=== PATIENT | male | born 1990 | race Caucasian/White ===

== ENCOUNTER 2017-12-11 17:33 | Emergency (ER) | payer OTHER ==
[~2017-12-11] VITALS: Ht 180.3 cm; Wt 161.0 kg
[2017-12-11 17:54] VITALS: Ht 180.3 cm; Wt 161.0 kg
[2017-12-11] MEDS ORDERED: IBUPROFEN 600 MG TAB PO STA (18:35)
[2017-12-11] MEDS ORDERED: ALBUT/IPRATROP 3MG/0.5MG NEB 3 ML VIAL INH STA (18:35)
[2017-12-11] MEDS ORDERED: ACET-1256 PO (18:40)
[2017-12-11] MEDS ORDERED: [UNRECOGNIZED DRUG - CODE] PO (18:40)
[2017-12-11 19:03] VITALS: BP 133/91; PULSE 112; TEMP 36.8; O2SAT 93
--- NOTE | 2017-12-11 19:14 | DIAGNOSTIC IMAGING REPORT ---
CHEST ONE VIEW PORTABLE HISTORY: Flu symptoms. Short of breath. COMPARISON: None. FINDINGS: The lungs are clear. Cardiac silhouette is normal in size. No pleural effusions. No pneumothorax. IMPRESSION: No acute process. Electronically signed by: Tyree Khalil M.D. 12/11/2017 7:13 PM Dictated Date/Time: 12/11/2017 7:12 PM
[2017-12-11 19:16] LABS: INFLUENZA B ANTIGEN Neg for Influ B (NEG)
[2017-12-11] MEDS ORDERED: OSEL75CA12 PO (19:20)
[2017-12-11] MEDS ORDERED: OSELTAMIVIR PHOSPHATE 75 MG CAP PO STA (19:20)
--- NOTE | 2017-12-11 19:27 | EMERGENCY ROOM VISIT NOTE ---
History Report prepared by Rom: Angela Marinelli Under the Supervision of: Dr. Marissa Adams M.D. First contact with patient: 18:24 Chief Complaint: COUGH Stated Complaint: HOT AND COLD, BODY ACHE, COUGHING Nursing Triage Summary: patient c/o chills feverish, bodyache and cough since yesterday. History of Present Illness The patient is a 27 year old male who presents to the Emergency Room with complaints of worsening cough starting yesterday. The patient complains of body aches, chills, shortness of breath, loss of appetite, and diaphoresis. He states that has been taking Tylenol with little relief with the last dose being 2.5 hours ago. He notes he has also been taking Theraflu and his Albuterol inhaler with little relief. The patient denies vomiting and diarrhea. He denies a history of asthma. The patient notes that he has been drinking a lot of water today. He states that he did not get the flu shot this year. The patient states that he quit smoking 11 days ago. Source of History: patient Onset: yesterday Position: other (global) Quality: ache, other (flu-like) Timing: worsening Associated Symptoms: + chills, + diaphoresis, + SOB, No vomiting, No diarrhea Note: The patient complains of loss of appetite. Review of Systems See HPI for pertinent positives & negatives. A total of 10 systems reviewed and were otherwise negative. Past Medical & Surgical Medical Problems: (1) No Known Active Medical Problems Family History No pertinent family history Social History Smoking Status: Former Smoker Drug Use: none Marital Status: single Housing Status: lives with roommate Current/Historical Medications Scheduled Oseltamivir (Tamiflu), 75 MG PO BID Scheduled PRN Acetaminophen (Tylenol), 1,000 MG PO Q8 PRN for Fever Rfdkwgpwbub-Vbseextpxdgso-Uuor (Theraflu Flu & Sore Throa), 1 PKT PO UD PRN for ILLNESS Allergies Coded Allergies: No Known Allergies (Unverified , 10/11/16) Physical Exam Vital Signs Date Time Temp Pulse Resp B/P (MAP) Pulse Ox O2 Delivery O2 Flow Rate FiO2 12/11/17 19:03 36.8 112 20 133/91 93 12/11/17 17:54 37.3 142 24 138/84 94 Room Air Physical Exam Vital signs reviewed. General: Well-appearing, obese, febrile, in no significant distress. HEENT: No scleral icterus, PERRLA, neck supple. Atraumatic. Cardiovascular: Regular rate and rhythm, no extra sounds. Pulmonary: Clear to auscultation bilaterally, increased work of breathing. Moist cough. Abdomen: Soft, nontender, nondistended, positive bowel sounds. Musculoskeletal: Atraumatic, no peripheral edema. Neurologic: Patient awake alert and oriented x 3, full strength in all 4 extremities. Cranial nerves 2 through 12 grossly intact. No meningeal signs. Skin: Warm, dry, no rash Medical Decision & Procedures ER Provider Diagnostic Interpretation: Radiology results as stated below per my review and radiologist interpretation: CHEST ONE VIEW PORTABLE HISTORY: Flu symptoms. Short of breath. COMPARISON: None. FINDINGS: The lungs are clear. Cardiac silhouette is normal in size. No pleural effusions. No pneumothorax. IMPRESSION: No acute process. Electronically signed by: Tyree Khalil M.D. 12/11/2017 7:13 PM Dictated Date/Time: 12/11/2017 7:12 PM Laboratory Results Test 12/11/17 18:45 Influenza Type A Antigen POS for Influ A (NEG) Influenza Type B Antigen Neg for Influ B (NEG) Laboratory results per my review. Medications Administered Medications (Trade) Dose Ordered Sig/Bina Route Start Time Stop Time Status Last Admin Dose Admin Ibuprofen (Motrin Tab) 600 mg NOW STAT PO 12/11/17 18:35 12/11/17 18:37 DC 12/11/17 18:45 600 MG Albuterol/ Ipratropium (Duoneb) 3 ml NOW STAT INH 12/11/17 18:35 12/11/17 18:37 DC 12/11/17 18:45 3 ML Oseltamivir Phosphate (Tamiflu Cap) 75 mg NOW STAT PO 12/11/17 19:20 12/11/17 19:21 DC 12/11/17 19:33 75 MG Albuterol (Ventolin Hfa Inhaler) 2 puffs NOW ONCE INH 12/11/17 19:30 12/11/17 19:31 DC 12/11/17 19:33 2 PUFFS ED Course 1832: Past medical records reviewed. The patient was evaluated in room B2. A complete history and physical examination was performed. 1834: Ordered Duoneb 3 ml INH, Motrin Tab 600 mg PO. 1919: Ordered Tamiflu Cap 75 mg PO. 1927: Upon reevaluation, the patient appeared to have improvement of his symptoms. I discussed findings with him. He verbalized agreement of the treatment plan. The patient was discharged home. 1929: Ordered Albuterol 2 puffs INH. Medical Decision DDx: influenza, other viral illness, pneumonia, urinary tract infection, metabolic abnormality, medication effect, cellulitis, meningitis, intra-abdominal source. This patient was evaluated and appeared to be in no significant distress. IV access was obtained and laboratory work was drawn. The patient was placed on the lunchroom monitor. He is found to be febrile and given 600 mg of ibuprofen orally. Influenza swab was obtained and is positive for influenza A. Chest x- ray is clear. The patient was informed of the findings. He was started on Tamiflu 75 mg twice a day for 5 days. The patient was discharged to care of family. He was advised to use Tylenol and ibuprofen as needed for pain or fever. She will drink plenty of clear fluids and use an albuterol inhaler as needed for cough or wheezing. He will follow-up with his PCP this week for reevaluation and return to the ER for worsening of symptoms or any medical concerns. Medication Reconcilliation Current Medication List: was personally reviewed by me Blood Pressure Screening Patient's blood pressure: Normal blood pressure Blood pressure disposition: Did not require urgent referral Impression Primary Impression: Influenza A Scribe Attestation The scribe's documentation has been prepared under my direction and personally reviewed by me in its entirety. I confirm that the note above accurately reflects all work, treatment, procedures, and medical decision making performed by me. Departure Information Dispostion Home / Self-Care Prescriptions Oseltamivir (Tamiflu) 75 Mg Cap 75 MG PO BID, #10 CAP Prov: Marissa Adams M.D. 12/11/17 Referrals No Doctor, Assigned (PCP) Forms HOME CARE DOCUMENTATION FORM, IMPORTANT VISIT INFORMATION Patient Instructions [facility] Additional Instructions Diagnosis: Influenza A Tamiflu 75 mg twice daily for 5 days. Albuterol 2 puffs every 4 hours as needed for wheezing or cough. Tylenol 650 mg every 6 hours as needed for pain or fever. Ibuprofen 600 mg every 6 hours as needed for pain or fever with food. Please drink plenty of clear fluids. Follow-up with your physician this week for reevaluation. Return to the ER for worsening of symptoms or any medical concerns.
[2017-12-11] MEDS ORDERED: ALBUTEROL HFA 8 GM INHALER INH ONE (19:30)
== END 2017-12-11 19:46 | disposition home or self-care (01) ==
LOC: C.EDB 17:34
DX: J11.1 Influenza due to unidentified influenza virus with other respiratory manifestations (principal); Z87.891 Personal history of nicotine dependence

== ENCOUNTER 2018-02-08 07:27 | Emergency (ER) | payer OTHER ==
[~2018-02-08] VITALS: Ht 180.3 cm; Wt 162.7 kg
[~2018-02-08 07:27] MED LIST: ACET-1256 PO; OSEL75CA12 PO; [UNRECOGNIZED DRUG - CODE] PO
[2018-02-08 07:31] VITALS: BP 163/101; TEMP 36.8; Ht 180.3 cm; Wt 162.7 kg
[2018-02-08] MEDS ORDERED: XYLOCAINE 1%/SOD BICARB 20 ML VIAL INFIL ONE (07:45)
[2018-02-08] MEDS ORDERED: DIPHTHERIA/TETANUS/PERTUSSIS 0.5 ML SYR/VIAL IM. ONE (07:45)
--- NOTE | 2018-02-08 08:32 | EMERGENCY ROOM VISIT NOTE ---
History First contact with patient: 07:35 Chief Complaint: LACERATION/CUT (SUT/DERMABOND) Stated Complaint: SLICED INDEX FINGER AT WORK Nursing Triage Summary: cut on left 2nd digit knuckle History of Present Illness The patient is a 27 year old male who presents to the Emergency Room with complaints of a laceration to his left index finger last night around 10:40 PM. This injury happened at work. The patient is employed at [employer]. He cut his finger on the edge of a metal surround on a [employer] machine. The patient denies any significant bleeding. He has had the wound bandaged all night, and now reports stiffness. He denies any paresthesias or numbness of the left index fingertip. The patient is ambidextrous. The patient is uncertain of his last tetanus immunization, and rates his discomfort a 2 out of 10. Review of Systems 6 system review was performed and was negative except for pertinent positives and negatives as indicated in history of present illness Past Medical/Surgical History Medical Problems: (1) No Known Active Medical Problems Medical Problems: (1) Morbid obesity with BMI of 50.0-59.9, adult (2) Nicotine Dependence, Cigarettes, Uncomplicated Family History No pertinent family history Social History Smoking Status: Current Every Day Smoker Alcohol Use: occasionally Drug Use: none Marital Status: single Housing Status: lives with roommate Occupation Status: employed Current/Historical Medications No Active Prescriptions or Reported Meds Physical Exam Vital Signs Date Time Temp Pulse Resp B/P (MAP) Pulse Ox O2 Delivery O2 Flow Rate FiO2 02/08/18 07:31 36.8 97 98 163/101 Room Air Physical Exam CONSTITUTIONAL: Morbidly obese male in no acute distress. HEENT: Normocephalic, atraumatic. Pupils equal, round and reactive. NECK: Full active range of motion without discomfort. MUSCULOSKELETAL: Examination of the left index finger shows a 7 mm V-shaped laceration over the dorsal PIP joint. No active bleeding is noted. Capillary refill is less than 2 seconds. INTEGUMENTARY: No rash or other significant dermatologic conditions noted. NEUROLOGIC: Left index fingertip is sensory intact. Medical Decision & Procedures Medications Administered Medications (Trade) Dose Ordered Sig/Bina Route Start Time Stop Time Status Last Admin Dose Admin Diphtheria/ Pertussis/Tetanus Vacc (Adacel Inj) 0.5 ml ONCE ONCE IM. 02/08/18 07:45 02/08/18 07:46 DC 02/08/18 07:46 0.5 ML Procedure Laceration evaluation and repair was performed under local anesthesia after receiving verbal consent from the patient. Using buffered 1% lidocaine without epinephrine, good local anesthesia was administered. The peripheral tissue was then cleansed with iodine, then the wound was irrigated with normal saline. Exploration of the wound does not show any involvement of the underlying tendon. The patient has full extensor effort with resisted movement. The wound was then approximated using 5-0 nylon simple interrupted sutures 3. A bacitracin dressing was applied. ED Course Patient history and physical exam were performed. Nurse's notes were reviewed. Vital signs were reviewed, showing a blood pressure of 163/101. Laceration repair was performed under local anesthesia. The patient was also administered Adacel IM. The patient was provided additional verbal and written wound care instructions. Ice and elevation for swelling. Ibuprofen or Tylenol as needed for pain. Return for suture removal in 12-14 days, sooner with any signs of wound infection. The patient was happy with plan of care, voiced understanding of all discharge instructions, and denied any pain at the time of discharge. The patient was also instructed to follow-up with his PCP for blood pressure recheck. Medical Decision Medication Reconcilliation Current Medication List: was personally reviewed by sd Blood Pressure Screening Patient's blood pressure: Elevated blood pressure Blood pressure disposition: Referred to PCP Impression Primary Impression: Laceration of left index finger Additional Impressions: Work related injury Elevated blood pressure reading Departure Information Prescriptions No Active Prescriptions or Reported Meds Referrals No Doctor, Assigned (PCP) Patient Instructions [facility] Problem Qualifiers Primary Impression: Laceration of left index finger Encounter type: initial encounter Damage to nail status: without damage Foreign body presence: without foreign body Qualified Codes: S61.211A - Laceration without foreign body of left index finger without damage to nail, initial encounter
[2018-02-08 08:43] VITALS: PULSE 97; O2SAT 100
== END 2018-02-08 08:43 | disposition home or self-care (01) ==
LOC: C.EDB 07:27
DX: S61.211A Laceration without foreign body of left index finger without damage to nail, initial encounter (principal); W26.8XXA Contact with other sharp object(s), not elsewhere classified, initial encounter; Y92.89 Other specified places as the place of occurrence of the external cause; Y99.0 Civilian activity done for income or pay; R03.0 Elevated blood-pressure reading, without diagnosis of hypertension; E66.01 Morbid (severe) obesity due to excess calories; F17.210 Nicotine dependence, cigarettes, uncomplicated

== ENCOUNTER 2018-02-22 07:39 | Emergency (ER) | payer OTHER ==
[~2018-02-22] VITALS: Ht 180.3 cm; Wt 165.1 kg
[2018-02-22 07:42] VITALS: BP 169/104; PULSE 93; TEMP 36.9; O2SAT 97; Ht 180.3 cm; Wt 165.1 kg
--- NOTE | 2018-02-22 07:51 | EMERGENCY ROOM VISIT NOTE ---
ED Visit Note First contact with patient: 07:46 CHIEF COMPLAINT: Suture removal HPI: This patient returns to the ED today for removal of sutures that were placed 14 days ago. There has been no swelling, redness, or drainage from the wound. The patient feels like the laceration is healing well. REVIEW OF SYSTEMS: A complete 6 point review of systems was reviewed with the patient with pertinent positives and negatives as per history of present illness. All else were negative. PMH: The patient is healthy; there is no significant medical or surgical history. SOCIAL HISTORY: Patient lives locally with family. He is employed by [employer], where the injury occurred. He denies drug, alcohol, tobacco use. PHYSICAL EXAM: Vital Signs: Reviewed Nurse's notes. There is a sutured wound on the left index finger with no signs of infection. [address] There is no erythema, swelling, or tenderness. EMERGENCY DEPARTMENT COURSE: The sutures were removed without any difficulty and there was no separation of the wound edges. The patient did receive an Adacel vaccination at his previous visit. Discharge instructions reviewed, the patient was discharged home in good condition. I attest that I have personally reviewed the patient's current medication list. Blood Pressure Screening: Patient was found to have a slightly elevated blood pressure due to circumstances. I do not believe that the patient requires hypertension monitoring. DIAGNOSIS: Healing laceration and suture removal Current/Historical Medications No Active Prescriptions or Reported Meds Allergies Coded Allergies: No Known Allergies (Unverified , 10/11/16) Vital Signs Date Time Temp Pulse Resp B/P (MAP) Pulse Ox O2 Delivery O2 Flow Rate FiO2 02/22/18 07:42 36.9 93 18 169/104 97 Room Air Departure Information Impression Primary Impression: Encounter for removal of sutures Additional Impression: Laceration of left index finger w/o foreign body w/o damage to nail Dispostion Home / Self-Care Condition GOOD Prescriptions No Active Prescriptions or Reported Meds Referrals Daniel Ceballos D.OCristina (PCP) Patient Instructions ED Wound Check Sutr Remove No Infec, [facility] Additional Instructions Proper wound care is essential for adequate wound healing and infection prevention. You can shower and clean the wound with soap and water. Do not scour over the wound, pat dry with a towel. Do not submerse the wound (i.e. bathe or dish wash) until the wound has fully healed. You can use an antibiotic ointment with a dressing over the wound for the next 3-4 days. After this time you may leave the wound dry and open to the air. Ibuprofen(Motrin, Advil) may be used for fever or pain. Use 400mg every six hours as needed. Take with food. Avoid using more than 2400mg in a 24 hour period. Do not use 2400mg per day for more than three consecutive days without physician direction. Prolonged inappropriate use can lead to stomach upset or ulcers. (AND/OR) Acetaminophen(Tylenol) may be used for fever or pain. Use 500mg every six hours as needed. Avoid using more than 3000mg in a 24 hour period. Problem Qualifiers Additional Impression: Laceration of left index finger w/o foreign body w/o damage to nail Encounter type: subsequent encounter Qualified Codes: S61.211D - Laceration without foreign body of left index finger without damage to nail, subsequent encounter
== END 2018-02-22 08:04 | disposition home or self-care (01) ==
LOC: C.EDB 07:41 → C.EDA 08:04
DX: Z48.02 Encounter for removal of sutures (principal); S61.211D Laceration without foreign body of left index finger without damage to nail, subsequent encounter; W45.8XXD Other foreign body or object entering through skin, subsequent encounter; Y99.0 Civilian activity done for income or pay

== ENCOUNTER → 2018-03-24 | Outpatient (CLI) | payer OTHER | END | disposition home or self-care (01) | LOC: C.LABSPEC 14:54 | PROVIDERS: ATTEND Urology | DX: N47.8 Other disorders of prepuce (principal) ==

== ENCOUNTER → 2018-03-29 | Outpatient (CLI) | payer OTHER ==
[~2018-03-29] MED LIST changes: +IBUP-103 PO; -OSEL75CA12 PO; +SERT50TA PO; -[UNRECOGNIZED DRUG - CODE] PO
--- NOTE | 2018-03-29 15:53 | DIAGNOSTIC IMAGING REPORT ---
CHEST 2 VIEWS ROUTINE CLINICAL HISTORY: PENILE ABNORMALITY, REDUNDANT PREPUCE PREOPERATIVE CHEST COMPARISON STUDY: December 11, 2017 FINDINGS: The cardiac and mediastinal contours are normal. There is no evidence of focal pulmonary consolidation. There is no evidence of failure. No pleural effusions are visualized.[ IMPRESSION: No active disease in the chest. Electronically signed by: Pineda Venegas M.D. 03/29/2018 3:52 PM Dictated Date/Time: 03/29/2018 3:52 PM
== END | disposition home or self-care (01) ==
LOC: C.RAD 15:36
PROVIDERS: ATTEND Urology
DX: N47.8 Other disorders of prepuce (principal)

== ENCOUNTER 2025-07-21 18:16 | Inpatient (IN) ==
--- NOTE | 2025-07-21 18:34 | Emergency Department Note ---
Impression & Plan Suicidal ideations, Depression ED Provider Note NAME: FREDA PERALTA AGE: 34 SEX: M : 1990 ARRIVES VIA: Walk-In INFORMANT: Patient ED PROVIDER(S): Sukhjinder Herman DO CHIEF COMPLAINT: Suicidal ideations HPI: Patient is a 34-year-old male with a past medical history of anxiety, marijuana use, hyperlipidemia and nicotine dependence that presents to the ER for suicidal ideations. Significant other present at bedside provides additional history and notes that depression and anxiety as well as suicidal ideations which have been worse over the past 3 weeks. 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 He denies any headache or change in vision currently but did note some mild blurry vision earlier today. No pain in the eyes. No loss of vision. No belly pain, nausea, vomiting, or diarrhea. No dysuria, urgency or frequency. No auditory or visual hallucinations. ADDITIONAL HISTORY OBTAINED: Per HPI Chronic Medical/Social Conditions Affecting Care: Per HPI PAST MEDICAL HISTORY:See Below PAST SURGICAL HISTORY:See Below FAMILY HISTORY:See Below SOCIAL HISTORY:See Below HOME MEDICATIONS:See Below ALLERGIES:See Below VITALS:See Below PHYSICAL EXAMINATION: GENERAL: Sitting up in bed, alert, well appearing, well nourished, no distress, non-toxic EYE EXAM: normal conjunctiva. PERRL and EOM's intact. OROPHARYNX: no exudate, no erythema, lips, buccal mucosa, and tongue normal and mucous membranes are moist NECK: supple, no nuchal rigidity, no adenopathy, non-tender LUNGS: Clear to auscultation. Normal chest wall mechanics HEART: no murmurs, S1 normal and S2 normal ABDOMEN: abdomen soft, non-tender, normo-active bowel sounds, no masses, no rebound or guarding. BACK: Back is symmetrical on inspection and there is no deformity, no midline tenderness, no CVA tenderness. SKIN: no rashes and no bruising UPPER EXTREMITIES: upper extremities are grossly normal. LOWER EXTREMITIES: No pitting edema. NEURO EXAM: Normal sensorium, cranial nerves II-XII intact, normal speech, no weakness of arms, no weakness of legs. No drift. [id number] intact. MEDICAL DECISION MAKING: Patient is a 34-year-old male who presents ER for the above-stated complaint. IV was established and blood work was obtained. Labs show no significant leukocytosis or anemia. BMP with slightly elevated glucose at 140. LFTs bilirubin and TSH was reassuring. UA was clean. Tox was positive for marijuana. Alcohol negative. COVID-negative. EKG was only performed at the request of psychiatry. CT head was negative. Patient was accepted to [address] 201 for suicidal ideations. Consults/Care Managements Discussions: Per [facility] Triage Nursing notes reviewed. Limited review of prior medical records performed Vital Signs: reviewed and remarkable for HTN Differential diagnosis: Mood disorder, infection, hypoglycemia, electrolyte abnormalities, cardiac sources, intracerebral event, toxicologic, trauma, neurologic, as well as other pathologies. ER treatment provided: See below Diagnostics interpreted by me include EKG and cardiac monitoring as listed below: -Cardiac Monitoring: An order was placed for continuous cardiac monitoring. The monitor shows a rate of 90 with sinus rhythm. -ECG: Sinus rhythm rate of 69 Normal axis No PVCs QTc 432 -Laboratory studies:Interpreted by me as stated above in MDM and shown below. Imaging studies: Xrays: As interpreted by me:none CTs show: CT of the head per my preliminary interpretation showed no obvious large bleed CT of the head per radiology as described above Procedures:none Critical Care: None Past Med/Surg History Problem List (Updated 07/21/25 @ 23:03 by Sukhjinder Herman DO) Depression (Acute) Suicidal ideations (Acute) Back pain (Chronic) Anxiety disorder Medical marijuana use Sacroiliac joint pain Herniation of intervertebral disc between L4 and L5 Back pain Hypercholesterolemia Abnormal ECG Right bundle branch block (RBBB) Family history of ID (myocardial infarction) Elevated liver enzymes Hemoptysis Palpitations Chest pain syndrome Sleep apnea Chest pain on exertion Obesity Essential hypertension Chronic low back pain (Acute) Depression (Acute) Nicotine dependence, cigarettes, uncomplicated (Acute) Morbid obesity with BMI of 50.0-59.9, adult Medical History Alcohol abuse Redundant prepuce and phimosis Penile skin bridge Surgical History History of wisdom tooth extraction Family History Father Diabetes Mother Hypertension Brain stem hemorrhage Sister Heart disease Other Anxiety Depression Gastroesophageal reflux disease Denies family history of Ovarian cancer Prostate cancer Myocardial infarction Breast cancer Colorectal cancer Social History Smoking Status: Current every day smoker Tobacco Type: E-cigarettes / Vaping Age Started Using Tobacco: 17; packs per day: 1; Second Hand Exposure: No; Do You Dip or Chew Tobacco: No; Hx Alcohol Use: No Hx Substance Use: Yes Prescribed Medications: Marijuana Last Used Substance: Days (ago) Last Used Substance Other:: YEST PER PT. Preferred Language: [place]an Communication Ability: Effective Visual Impairment: No Limitations Hearing Ability: Normal Manuscript Reader Required: No marital status: Single Current Living Situation: Significant Other current occupational status: employed current occupation: [employer] Feels Safe at Home: Yes Childhood Exposure to Second-Hand Smoke: Yes Diet: regular caffeine: Yes during the past year weight has: remained stable Dental Care, Regularly: Yes Physical Activity Frequency: Daily Seatbelt Use: always Sunscreen Use: Yes Gender Identity: Male Assistive Devices: Glasses Allergies Allergies Allergy/AdvReac Type Severity Reaction Status Date / Time nickel Allergy Unknown Hives Verified 07/21/25 21:57 No Known Drug Allergies Allergy Unknown Unknown Verified 07/21/25 21:57 Home Meds Home Medications Medication Instructions Recorded Confirmed alprazolam 0.25 mg tablet 0.25 mg PO TID PRN Anxiety 07/21/25 07/21/25 omeprazole 40 mg capsule,delayed 40 mg PO DAILY PRN Acid Reflux 07/21/25 07/21/25 release Previous Rx's Medication Instructions Recorded atorvastatin 20 mg tablet 20 mg PO QPM #30 tabs 01/20/24 loperamide 2 mg capsule 2 mg PO Q6H PRN loose stool #30 11/23/24 caps ondansetron 4 mg disintegrating 4 mg PO Q8H PRN nausea and 11/23/24 tablet vomiting #30 tabs sertraline 100 mg tablet 100 mg PO DAILY #90 tabs 12/11/24 amlodipine 10 mg tablet 10 mg PO QAM #30 tabs 05/06/25 valsartan 80 mg tablet 80 mg PO QAM #30 tabs 05/06/25 meclizine 25 mg tablet 12.5 - 25 mg (0.5 - 1 x 25 mg) PO 05/11/25 QID PRN dizziness #12 tabs sertraline 25 mg tablet (Zoloft) 25 mg PO DAILY #30 tabs 07/17/25 Results & Data (ED) Vital Signs Vital Signs - 24 hr 07/21/25 18:17 07/21/25 21:05 Temperature 36.6 C Temperature Source Temporal Artery Scan Pulse Rate 93 H Pulse Rate [Finger] 70 Pulse Rhythm [Finger] Regular Pulse Strength [Finger] Normal Respiratory Rate 18 17 Respiratory Effort / Characteristics Non-Labored Spontaneous Non-Labored Spontaneous Respiratory Depth Normal Normal Respiratory Pattern Regular Regular Blood Pressure 151/96 H Blood Pressure [Left Arm] 142/85 H Blood Pressure Mean 114 Blood Pressure Mean [Left Arm] 104 Blood Pressure Position [Left Arm] Lying Pulse Oximetry 100 100 Oxygen Delivery Method Room Air Room Air Sepsis Recent Fever Within 48 Hours No Sepsis New/Unexplained Change in Mental Status No Sepsis Action Taken by Nursing No Action Required Laboratory Data 07/21/25 18:35 07/21/25 18:35 Lab Results 07/21/25 07/21/25 07/21/25 Range/Units 18:35 18:38 19:20 WBC 9.29 (4.8-10.8) K/ul RBC 5.87 (4.70-6.10) M/uL Hgb 18.2 H (14.0-18.0) g/dl Hct 54.2 H (42.0-52.0) % MCV 92.3 (80.0-100.0) fL MCH 31.0 (25.0-34.0) pg MCHC 33.6 (32.0-36.0) g/dL RDW Std Deviation 43.2 (36.4-46.3) fL RDW Coeff of Velasquez 12.6 (11.5-14.5) % Plt Count 188 (130-400) K/uL MPV 10.5 (9.4-12.4) fL Immature Gran % (Auto) 0.2 % Neut % (Auto) 68.9 % Lymph % (Auto) 22.6 % [place] % (Auto) 5.1 % Eos % (Auto) 2.6 % Baso % (Auto) 0.6 % Neut # (Auto) 6.40 (1.40-6.50) K/uL Lymph # (Auto) 2.10 (1.20-3.40) K/uL [place] # (Auto) 0.47 (0.11-0.59) K/uL Eos # (Auto) 0.24 (0.00-0.50) K/uL Baso # (Auto) 0.06 (0.00-0.20) K/uL Immature Gran # (Auto) 0.02 (0.01-0.20) K/uL Sodium 140 (136-145) mmol/L Potassium 4.0 (3.5-5.1) mmol/L Chloride 104 (98-107) mmol/L Carbon Dioxide 28 (21-32) mmol/L Anion Gap 8 (3-11) BUN 12 (6-23) mg/dl Creatinine 1.17 (0.6-1.4) mg/dl Est Cr Clr Drug Dosing 122.5 ml/min eGFR 83.89 BUN/Creatinine Ratio 10.3 (10-20) Glucose 140 H (70-99(Fasting)) mg/dl Calcium 9.8 (8.6-10.3) mg/dl Total Bilirubin 1.0 (0.2-1.0) mg/dl AST 15 (13-39) U/L ALT 12 (7-52) U/L Alkaline Phosphatase 76 (34-104) U/L Total Protein 8.4 H (6.0-8.3) gm/dl Albumin 4.9 (3.4-5.0) gm/dl Globulin 3.5 (2.5-4.0) gm/dl Albumin/Globulin Ratio 1.4 (0.9-2) TSH 2.296 (0.300-4.500) uIu/ml Urine Color Yellow Urine Appearance Clear (Clear) Urine pH 6.0 (4.5-7.5) Ur Specific [place] 1.020 (1.000-1.030) Urine Protein Negative (Negative) Urine Glucose (UA) Negative (Negative) Urine Ketones Negative (Negative) Urine Blood Negative (Negative) Urine Nitrite Negative (Negative) Urine Bilirubin Negative (Negative) Urine Urobilinogen Negative (Negative) Ur Leukocyte Esterase Negative (Negative) Urine Comment Salicylates < 3.0 L (3.0-30) mg/dl Urine Opiates Screen Neg (Neg) Ur Methadone, Qual Neg (Neg) Urine Fentanyl Screen Neg (Neg) Acetaminophen < 3 L (10-30) ug/ml Urine Barbiturates Neg (Neg) Ur Phencyclidine (PCP) Neg (Neg) U Amphetamin/Meth Scrn Neg (Neg) MDMA (Ecstasy) Screen Neg (Neg) U Benzodiazepines Scrn Neg (Neg) Ur Cocaine Metabolite Neg (Neg) U Marijuana (THC) Screen Pos H (Neg) Ethyl Alcohol mg/dL < 10.0 (<10.0) mg/dl SARS-CoV-2, RNA, NAAT NEGATIVE (NEGATIVE) Administered Medications Discontinued Medications Hydroxyzine HCl (Hydroxyzine Hcl 25 Mg Tab) 25 mg PO NOW STA Stop: 07/21/25 18:35 Last Admin: 07/21/25 18:42 Dose: 25 mg Documented By: O Imaging Data Radiologist's Impression: Head CT 07/21/25 18:33 CT head without contrast History: Trauma Comparison: None Technique: Using multidetector thin collimation helical acquisition technique, axial, coronal and sagittal CT images from the skull base to the vertex were obtained without intravenous contrast. Dose reduction techniques were achieved by using automatic exposure control and/or adjustment of mA and/or kV according to patient size and/or use of iterative reconstruction technique. Findings: No intracranial hemorrhage, mass-effect, or midline shift. The ventricles are proportionate to the cerebral sulci. The serna to white matter differentiation of the cerebral hemispheres is preserved. The basal cisterns are patent. The visualized paranasal sinuses are clear. Mastoid air cells are clear. Impression: No acute intracranial pathology. Electronically signed by Smith Yi 07-21-2025 7:28 PM Discharge Plan Visit Data Chief Complaint: Mental Health Evaluation Stated Complaint: MENTAL HEALTH EVAL ED Provider: Sukhjinder Herman Discharge Problem: Suicidal ideations, Depression Condition: Fair Forms Stand Alone Forms: [facility], Suicide Prevention Resources Prescriptions Prescriptions: No Action sertraline 100 mg tablet 100 mg PO DAILY Qty: 90 3RF amlodipine 10 mg tablet 10 mg PO QAM Qty: 30 5RF Hold Instructions: Home Medication placed on hold at Doctor's office Patient Comments: Patient states medication is currently on hold due to recent weight loss valsartan 80 mg tablet 80 mg PO QAM Qty: 30 5RF Hold Instructions: Home Medication placed on hold at Doctor's office Patient Comments: Currently on hold due to recent weight loss atorvastatin 20 mg tablet 20 mg PO QPM Qty: 30 2RF Patient Comments: Currently on hold due to recent weight loss loperamide 2 mg capsule 2 mg PO Q6H PRN (Reason: loose stool) Qty: 30 0RF Rx Instructions: Take after watery/loose stool ondansetron 4 mg tablet,disintegrating 4 mg PO Q8H PRN (Reason: nausea and vomiting) Qty: 30 1RF sertraline [Zoloft] 25 mg tablet 25 mg PO DAILY Qty: 30 3RF Patient Comments: Recently added to the previously prescribed 100mg; has not started Rx Instructions: Take with sertraline 100 mg daily meclizine 25 mg tablet 12.5 - 25 mg PO QID PRN (Reason: dizziness) Qty: 12 0RF alprazolam 0.25 mg tablet 0.25 mg PO TID PRN (Reason: Anxiety) omeprazole 40 mg capsule,delayed release(DR/EC) 40 mg PO DAILY PRN (Reason: Acid Reflux) Referrals Referrals: Daniel Ceballos DO [Primary Care Provider] - Discharge Problem: Depression Qualifiers: Depression Type: unspecified Qualified Code(s): F32.A - Depression, unspecified
[2025-07-21 18:54] LABS: Hematocrit (blood only) 54.2 % (42.0-52.0); Hemoglobin 18.2 g/dl (14.0-18.0); Immature Granulocytes # (auto) 0.02 K/uL (0.01-0.20); Immature Granulocytes % (auto) 0.2 %; Mean Corpuscular Hemoglobin 31.0 pg (25.0-34.0); Mean Corpuscular Volume 92.3 fL (80.0-100.0); Platelet Count 188 K/uL (130-400); RDW Standard Deviation 43.2 fL (36.4-46.3); Red Blood Count 5.87 M/uL (4.70-6.10); White Blood Count 9.29 K/ul (4.8-10.8)
[2025-07-21 19:13] LABS: Alanine Aminotransferase 12.0 U/L (7-52); Albumin Globulin Ratio 1.4 (0.9-2); Alkaline Phosphatase 76.0 U/L (34-104); Anion Gap 8.0 (3-11); Bilirubin,Total 1.0 mg/dl (0.2-1.0); Blood Urea Nitrogen 12.0 mg/dl (6-23); Calcium 9.8 mg/dl (8.6-10.3); Carbon Dioxide 28.0 mmol/L (21-32); Chloride 104.0 mmol/L (98-107); Creatinine Clr Calc Pharmacy 122.5 ml/min; Globulin 3.5 gm/dl (2.5-4.0); Glucose 140.0 mg/dl (70-99(Fasting)); Potassium 4.0 mmol/L (3.5-5.1); Sodium 140.0 mmol/L (136-145); Total Protein 8.4 gm/dl (6.0-8.3)
[2025-07-21 19:27] LABS: Thyroid Stimulating Hormone 2.296 uIu/ml (0.300-4.500)
--- NOTE | 2025-07-21 19:29 | CT Scan Report ---
CT head without contrast History: Trauma Comparison: None Technique: Using multidetector thin collimation helical acquisition technique, axial, coronal and sagittal CT images from the skull base to the vertex were obtained without intravenous contrast. Dose reduction techniques were achieved by using automatic exposure control and/or adjustment of mA and/or kV according to patient size and/or use of iterative reconstruction technique. Findings: No intracranial hemorrhage, mass-effect, or midline shift. The ventricles are proportionate to the cerebral sulci. The serna to white matter differentiation of the cerebral hemispheres is preserved. The basal cisterns are patent. The visualized paranasal sinuses are clear. Mastoid air cells are clear. Impression: No acute intracranial pathology. Electronically signed by Smith Yi 07-21-2025 7:28 PM
[2025-07-21 19:33] LABS: Acetaminophen < 3 ug/ml (10-30); Salicylate < 3.0 mg/dl (3.0-30)
[2025-07-21 19:37] LABS: Appearance Urine Clear (Clear); Glucose Urine UA Negative (Negative)
[2025-07-21 20:13] LABS: Amphetamines+Metham, Urine Neg (Neg); MDMA (Ecstacy), Urine Neg (Neg); Marijuana, Urine Pos (Neg)
[2025-07-22] MEDS ORDERED: MAGNESIUM HYDROXIDE SUSP 30 ML UDC PO PRN (00:20)
[2025-07-22] MEDS ORDERED: BISMUTH SUBSALICYLATE 262 MG CHEW PO PRN (00:20)
[2025-07-22] MEDS ORDERED: ALUMINUM/MAGNESIUM SUSP 30 ML UDC PO PRN (00:20)
[2025-07-22] MEDS ORDERED: SODIUM CHLORIDE 0.65% NA SOLN 45 ML (OCEAN) PRN (00:20)
[2025-07-22] MEDS ORDERED: LORazepam 0.5 MG TAB PO PRN (01:35)
[2025-07-22] MEDS: NICOTINE 14 MG/24 HR PATCH TD SCH (08:20)
[2025-07-22] MEDS: REMOVE NICODERM PATCH SCH (08:20)
[2025-07-22] MEDS: SERTRALINE HCL 100 MG TABLET PO SCH (08:20)
--- NOTE | 2025-07-22 12:41 | Electrocardiogram Report ---
Test Reason : Blood Pressure : */* mmHG Vent. Rate : 69 BPM Atrial Rate : 69 BPM P-R Int : 158 ms QRS Dur : 98 ms QT Int : 404 ms P-R-T Axes : 52 -7 59 degrees QTcB Int : 432 ms Normal sinus rhythm Incomplete right bundle branch block Borderline ECG When compared with ECG of 11-May-2025 14:39, No significant change was found Confirmed by Boubacar Lewis ([id number]) on 07/22/2025 12:41:28 PM Referred By: NO PCP Confirmed By: Boubacar Lewis
[2025-07-22] MEDS: NICOTINE POLACRILEX 2 MG GUM MT PRN (13:34)
[2025-07-22] MEDS: PROPRANOLOL HCL 10 MG TAB PO SCH (15:00)
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
[2025-07-23] MEDS: ACETAMINOPHEN 325 MG TAB PO PRN (07:59)
[2025-07-23] MEDS: SERTRALINE HCL 50 MG TABLET PO SCH (08:02)
[2025-07-23 08:25] LABS: Hemoglobin A1C 5.0 % (4.5-5.6)
[2025-07-23 08:33] LABS: Cholesterol 207.0 mg/dl (0-200); HDL Cholesterol 30.0 mg/dl; Triglycerides 164.0 mg/dl (0-150)
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
[2025-07-23] MEDS: ERGOCALCIFEROL 1250 MCG (50,000 UNITS) CAP PO SCH (16:09)
[2025-07-23] MEDS: ZOLPIDEM TARTRATE 5 MG TAB PO SCH (21:01)
[2025-07-24 06:19] VITALS: RESP 16
[2025-07-24] MEDS: CHOLECALCIFEROL 125 MCG (5,000 UNITS) TAB PO SCH (08:57)
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
[2025-07-24] MEDS: ARIPiprazole 5 MG TAB PO SCH (12:13)
[2025-07-24 19:19] VITALS: O2SAT 98
[2025-07-24] MEDS: ZOLPIDEM TARTRATE 5 MG TAB PO SCH (20:40)
[2025-07-25 10:43] LABS: Marijuana Quant, GCMS Urine >5000 ng/mL (<5)
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
[2025-07-26 06:16] VITALS: PULSE 70; TEMP 97.5
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
[2025-07-26 10:05] VITALS: BP 137/84
== END 2025-07-26 10:17 | disposition home or self-care (01) | DRG 885 ==
LOC: ED 18:16 → 3S 22:56